=== PATIENT | female | born 2005 | race Hispanic/Latino ===

== ENCOUNTER 2024-04-05 08:47 | Day surgery (SDC) | payer OTHER ==
[~2024-04-05] VITALS: Ht 162.6 cm; Wt 118.4 kg
[~2024-04-05 08:47] MED LIST: BACTRIM DS1 TAB PO; OZEMPIC2 MG SC
[2024-04-05] MEDS ORDERED: BUPIVACAINE 133 MG/10 ML VIAL IJ ONE (09:04)
[2024-04-05] MEDS ORDERED: STERILE WATER FOR IRRIGATION 1,000 ML BTL IR ONE (09:04)
[2024-04-05] MEDS ORDERED: SODIUM CHLORIDE 1,000 ML BTL IR ONE (09:04)
[2024-04-05] MEDS ORDERED: SODIUM CHLORIDE 20 ML/VIAL SDV ONE (09:06)
[2024-04-05] MEDS ORDERED: SODIUM CHLORIDE 0.9% 100 ML IV ONE (09:08)
[2024-04-05] MEDS ORDERED: ceFAZolin Sodium 2 GM/VIAL SDV ONE (09:08)
[2024-04-05] MEDS ORDERED: LACTATED RINGER'S 1,000 ML IV ONE (09:08)
[2024-04-05] MEDS ORDERED: FAMOTIDINE 10MG/ML 2ML SDV IV ONE (09:20)
[2024-04-05] MEDS ORDERED: PERCOCET 5/325M1 TAB PO (09:56)
[2024-04-05] MEDS ORDERED: ACETAMINOPHEN 100 ML IV ONE (10:53)
[2024-04-05 11:31] VITALS: BP 122/69
[2024-04-05] MEDS ORDERED: PROPOFOL 200 MG/20 ML VIAL IV ONE (15:54)
[2024-04-05] MEDS ORDERED: LIDOCAINE HCL 2% 2ML SDV IV ONE (15:54)
[2024-04-05] MEDS ORDERED: SUCCINYLCHOLINE CHLORIDE 20 MG/ML 10ML VIAL IV ONE (15:54)
[2024-04-05] MEDS ORDERED: ONDANSETRON HCl 4 MG/2 ML SDV IV ONE (15:54)
[2024-04-05] MEDS ORDERED: SUGAMMADEX SODIUM 200 MG/2 ML SDV IV ONE (15:54)
[2024-04-05] MEDS ORDERED: ROCURONIUM BROMIDE 10 MG/ML 5ML VIAL IV ONE (15:54)
[2024-04-05] MEDS ORDERED: GLYCOPYRROLATE 0.2 MG/ML IV ONE (15:54)
[2024-04-05] MEDS ORDERED: KETOROLAC TROMETHAMINE 30 MG/ML SDV IV ONE (15:54)
[2024-04-05] MEDS ORDERED: MIDAZOLAM HCL 2 MG/2 ML VIAL IV ONE (15:54)
== END 2024-04-05 11:40 | disposition home or self-care (01) ==
LOC: ORM 08:47
PROVIDERS: ATTEND Surgery
DX: L05.01 Pilonidal cyst with abscess (principal)
CPT/HCPCS: J0131; J0666; J0690; J1100; J1596; J2405